=== PATIENT | male | born 1975 | race Hispanic/Latino ===

== ENCOUNTER → 2020-06-08 | Outpatient (CLI) | payer OTHER | LOC: RAD 08:36 | PROVIDERS: ATTEND Family Medicine | DX: I31.4 Cardiac tamponade (principal) | CPT/HCPCS: 93306 ==

== ENCOUNTER 2020-09-30 07:33 | Emergency (ER) | payer OTHER ==
[~2020-09-30] VITALS: Ht 172.7 cm; Wt 72.6 kg
[2020-09-30] MEDS ORDERED: ORPHENADRINE CITRATE 30 MG/ML VIAL IM ONE (08:15)
[2020-09-30] MEDS ORDERED: KETOROLAC TROMETHAMINE 60 MG/2 ML VIAL IM ONE (08:15)
[2020-09-30] MEDS ORDERED: HYDROCODONE/APAP 10MG-325MG TAB PO STA (09:28)
== END 2020-09-30 09:36 | disposition home or self-care (01) ==
LOC: ER 08:10
DX: M54.12 Radiculopathy, cervical region (principal); I10 Essential (primary) hypertension; M25.511 Pain in right shoulder
CPT/HCPCS: 93005; 99283; J1885; J2360